=== PATIENT | female | born 1960 | race Caucasian/White ===

== ENCOUNTER 2017-09-28 18:11 | Emergency (ER) | payer MEDICAID ==
[~2017-09-28] VITALS: Ht 162.6 cm; Wt 100.0 kg
[~2017-09-28 18:11] MED LIST: ACET-3161 PO; ALBUL INH; AMLO10TA4 PO; CLON0.1T14 PO; TIOT18CA3 INH; dilantin
[2017-09-29 00:29] LABS: BASOPHILS % 0.3 % (0.0-2.0); EOSINOPHILS % 3.6 % (0.0-5.0); HEMATOCRIT. 40.5 % (36.0-48.0); HEMOGLOBIN. 13.5 g/dL (12.0-16.0); LYMPHOCYTES % 19.3 % (20.0-50.0); MEAN CORPUSCULAR HEMOGLOBIN 28.4 pg (28.0-32.0); MEAN PLATELET VOLUME 7.9 fl (7.4-10.4); MONOCYTES % 8.2 % (2.0-8.0); NEUTROPHILS % 68.6 % (40.0-76.0); PLATELET 207 x1000/uL (130-400); RED BLOOD CELL COUNT 4.76 mill/uL (4.2-5.4); RED CELL DISTRIBUTION WIDTH 13.6 % (11.6-14.6)
[2017-09-29] MEDS ORDERED: HYDROCODONE/ACETAMINOPHEN 5/325MG TABLET PO ONE (00:30)
[2017-09-29 00:47] LABS: CARBON DIOXIDE 30 mEq/L (21-32); CHLORIDE 105 mEq/L (98-107)
[2017-09-29] MEDS ORDERED: SODIUM CHLORIDE 0.9% 1,000 ML IV NR (02:28)
[2017-09-29] MEDS ORDERED: ONDANSETRON HCL 4MG/2ML VIAL IM NR (02:30)
[2017-09-29] MEDS ORDERED: MORPHINE SULFATE 2 MG/ML CPJ (NOT FOR IM USE) IV NR (02:30)
[2017-09-29 02:47] LABS: CLARITY URINE CLEAR (CLEAR); COLOR URINE YELLOW (YELLOW); KETONES URINE 1+ (NEGATIVE); LEUKOCYTE ESTERASE URINE NEGATIVE (NEGATIVE); NITRITE URINE NEGATIVE (NEGATIVE); OCCULT BLOOD URINE TRACE (NEGATIVE); PROTEIN URINE NEGATIVE (NEGATIVE); SPECIFIC GRAVITY URINE 1.025 (1.005-1.030)
[2017-09-29] MEDS ORDERED: POTASSIUM BICARB/CIT ACID 25 MEQ TABLET.EFF PO NR (03:45)
[2017-09-29] MEDS ORDERED: VANCOMYCIN 1 G PREMIX 200 ML IV ONE (03:45)
[2017-09-29] MEDS ORDERED: BACITRACIN ZINC OINT UDPKT TOP NR (04:30)
[2017-09-29] MEDS ORDERED: TETANUS, DIPHTHERIA, PERTUSSIS VAC/PF 0.5ML (>7YR OLD) IM ONE (04:30)
[2017-09-29] MEDS ORDERED: MAGNESIUM/ALUMINUM HYDROXIDE/SIMETHICONE 30ML UDC PO NR (04:30)
[2017-09-29] MEDS ORDERED: FAMOTIDINE 20MG/2ML VIAL IV NR (04:30)
[2017-09-29] MEDS ORDERED: LIDOCAINE HCL 1% 20ML VIAL (Pyxis) INJ MC NR (04:30)
[2017-09-29] MEDS ORDERED: TRAMADOL 50MG TABLET PO ONE (06:45)
[2017-09-29 08:24] VITALS: BP 132/60
== END 2017-09-29 08:50 | disposition home or self-care (01) ==
LOC: ER 19:26
DX: L02.416 Cutaneous abscess of left lower limb (principal); R11.10 Vomiting, unspecified; B35.6 Tinea cruris; E87.6 Hypokalemia; F17.200 Nicotine dependence, unspecified, uncomplicated; J44.9 Chronic obstructive pulmonary disease, unspecified; I10 Essential (primary) hypertension; Z89.512 Acquired absence of left leg below knee; Z88.5 Allergy status to narcotic agent; Z88.8 Allergy status to other drugs, medicaments and biological substances; Z86.14 Personal history of Methicillin resistant Staphylococcus aureus infection
CPT/HCPCS: 10060; 36415; 76881; 80053; 81001; 83690; 85025; 93005; 96361; 96365; 96372; 96375; 99285; J2270; J2405; J3370; J3490; J7030; Z7610; 90715